=== PATIENT | female | born 1995 | race Caucasian/White ===

== ENCOUNTER 2018-12-26 22:27 | Emergency (ER) | payer BC ==
[~2018-12-26] VITALS: Ht 172.7 cm; Wt 100.0 kg
[2018-12-26 22:32] VITALS: TEMP 99.3
[2018-12-26 23:51] LABS: BASO % 0.1 % (0.0-2.0); EOS % 0.5 % (0-4.0); GRAN % 40.2 % (42.2-75.2); HEMOGLOBIN 12.2 g/dl (12.5-16.0); LYMPH # 3.7 (1.2-3.4); LYMPH % 48.3 % (20.0-51.0); MEAN CELL VOLUME 89 fl (80.0-100.0); MEAN CORPUSCULAR HEMOGLOBIN 30 pg (27.0-31.0); MEAN CORPUSCULAR HGB CONC 33 g/dl (33.0-37.0); MEAN PLATELET VOLUME 10.4 fl (7.4-10.4); MONO # 0.8 (0.1-0.6); MONO % 10.6 % (1.7-9.3); PLATELET COUNT 214 K/mm3 (130-400); RED BLOOD COUNT 4.14 M/mm3 (4.10-5.30); REDCELL DISTRIBUTION WIDTH-CV 13.7 % (11.5-14.5)
[2018-12-26 23:54] LABS: HEMATOCRIT 36.7 % (37.0-47.0)
[2018-12-26 23:55] LABS: PROTHROMBIN TIME 11.6 SECONDS (9.7-12.8)
[2018-12-27 00:01] LABS: ALANINE AMINOTRANSFERASE 10 U/L (9-52); ALBUMIN 4.1 gm/dL (3.5-5.0); ALKALINE PHOSPHATASE 52 U/L (50-136); ANION GAP 9 mmol/L (7-16); AST,SGOT 16 U/L (15-37); BILIRUBIN,TOTAL 0.2 mg/dL (0.0-1.0); BLOOD UREA NITROGEN 22 mg/dL (7-17); CALCIUM 9.4 mg/dL (8.4-10.2); CARBON DIOXIDE 26 mmol/L (22-30); CHLORIDE 106 mmol/L (98-107); CREATININE, serum 0.92 (0.52-1.25); D-DIMER < 200.00 ng/mLDDu (200-230); GLUCOSE 100 mg/dL (74-106); LIPASE 67 U/L (23-300); POTASSIUM 4.1 mmol/L (3.4-5.0); SODIUM 141 mmol/L (137-145); TOTAL PROTEIN 7.4 gm/dL (6.4-8.2)
[2018-12-27 00:18] LABS: TROPONIN-I < 0.012 ng/mL (0.000-0.035)
[2018-12-27] MEDS ORDERED: TOPROL XL 25MG25 MG PO (01:28)
[2018-12-27 03:37] VITALS: BP 111/76; PULSE 83
== END 2018-12-27 03:37 | disposition home or self-care (01) ==
LOC: COL.ER 22:27
PROVIDERS: Emergency Medicine
DX: I48.91 Unspecified atrial fibrillation (principal)
CPT/HCPCS: J0282; J7030; J7060

== ENCOUNTER 2019-09-17 07:34 | Day surgery (SDC) | payer BC ==
[~2019-09-17 07:34] MED LIST: TOPROL XL 25MG25 MG PO
[2019-09-17] MEDS ORDERED: TOPROL XL 25MG25 MG PO (07:45)
[2019-09-17] MEDS ORDERED: ASPI325T6 PO (07:47)
[2019-09-17] MEDS ORDERED: TAMBOCOR50 MG PO ×2 (07:47→09:01)
--- NOTE | 2019-09-17 09:20 | NUR ---
Pt in SR. Dr. Echavarria in to see pt and LAURE/Cardioversion cancelled. Discharge instructions given and pt ambulated out with parents.
== END 2019-09-17 09:20 | disposition home or self-care (01) ==
LOC: COL.CAR 07:34
DX: I48.92 Unspecified atrial flutter (principal); Z88.1 Allergy status to other antibiotic agents; Z53.8 Procedure and treatment not carried out for other reasons
CPT/HCPCS: J2250; J2704; J3010